=== PATIENT | male | born 1950 | race Caucasian/White ===

== ENCOUNTER 2022-12-09 10:12 | Emergency (ER) | payer OTHER ==
[2022-12-09] MEDS ORDERED: VANCOMYCIN 1,000 MG in DEXTROSE 5%-WATER - 250 ML IVPB ONE (10:40)
[2022-12-09] MEDS ORDERED: CEFEPIME HCL/D5W 1 GM/50 ML BAG IVPB ONE (10:41)
[2022-12-09] MEDS ORDERED: KETOROLAC TROMETHAMINE 30 MG/1 ML VIAL IVPUSH ONE (10:42)
[2022-12-09 10:52] LABS: BASO % 0.2 % (0-2.0); EOS % 0.8 % (0-4.5); HEMATOCRIT 41.4 % (35.4-49); HEMOGLOBIN 14.4 GM/dL (11.7-16.9); LYMPH % 15.9 % (8-40); MCH 31.6 pg (25.7-33.7); MCHC 34.9 g/dl (32.0-35.9); MEAN CELL VOLUME 90.6 fl (80-96); MEAN PLT VOLUME 7.2 fl (7.5-11.1); MONO % 12.3 % (3.8-10.2); NEUT % 70.8 % (42.8-82.8); PLATELET COUNT 264 10^3/uL (134-434); RBC 4.57 M/mm3 (4.00-5.60); RDW 13.9 % (11.9-15.9); WHITE BLOOD COUNT 11.3 K/mm3 (4.0-10.0)
[2022-12-09 10:58] LABS: INR 1.06 (0.83-1.09); PROTHROMBIN TIME (PATIENT) 12.3 SEC (9.7-13.0)
[2022-12-09 11:00] LABS: ACTIVATED PTT 27.3 SECONDS (25.2-36.5)
[2022-12-09] MEDS ORDERED: KETOROLAC TROMETHAMINE 30 MG/1 ML VIAL ONE (11:01)
[2022-12-09] MEDS ORDERED: VANCOMYCIN/WATER FOR INJ (PEG) 1,000 MG/200 ML BAG IVPB ONE (11:01)
[2022-12-09] MEDS ORDERED: CEFEPIME 1 GM/100 ML BAG IVPB ONE (11:02)
[2022-12-09 11:21] LABS: CALCIUM 9.7 mg/dL (8.5-10.1)
[2022-12-09 11:22] LABS: ALBUMIN 3.6 g/dl (3.4-5.0); BLOOD UREA NITROGEN 19.6 mg/dL (7-18)
[2022-12-09 11:24] LABS: URIC ACID 6.3 mg/dL (2.6-7.2)
[2022-12-09 11:26] LABS: BILIRUBIN,TOTAL 0.7 mg/dL (0.2-1); TOT PROT 7.8 g/dl (6.4-8.2)
[2022-12-09 12:30] VITALS: BP 138/81; PULSE 77; RESP 18; TEMP 98.5; BMI 28.5
== END 2022-12-09 16:35 | disposition home or self-care (01) ==
LOC: JER 10:12
PROC: 3E03329 Introduction of Other Anti-infective into Peripheral Vein, Percutaneous Approach (ICD-10-PCS; principal; 2022-12-09)
PROC: 3E03329 Introduction of Other Anti-infective into Peripheral Vein, Percutaneous Approach (ICD-10-PCS; 2022-12-09)
PROC: 3E0333Z Introduction of Anti-inflammatory into Peripheral Vein, Percutaneous Approach (ICD-10-PCS; 2022-12-09)
DX: M65.9 Synovitis and tenosynovitis, unspecified (principal); M79.644 Pain in right finger(s); R50.9 Fever, unspecified
CPT/HCPCS: 36415; 80053; 83605; 84550; 85025; 85610; 85651; 85730; 86140; 86850; 86900; 86901; 87040; 99284-25

== ENCOUNTER 2023-03-06 10:43 | Day surgery (SDC) | payer OTHER ==
[2023-02-28 11:29] VITALS: BMI 27.8
[2023-03-05] MEDS: oxyCODONE HCL 5 MG TABLET PO PRN (16:03)
[2023-03-05] MEDS: CEFAZOLIN SODIUM 2 GM in DEXTROSE 5%-WATER 100 ML IVPB SCH ×2 (16:04→23:05)
[2023-03-05] MEDS: TAMSULOSIN HCL 0.4 MG CAP PO SCH (18:01)
[2023-03-05] MEDS: KETOROLAC TROMETHAMINE 30 MG/1 ML VIAL IVPUSH SCH ×2 (18:03→23:05)
[2023-03-05] MEDS: ACETAMINOPHEN 500 MG TABLET (FP) PO SCH (20:00)
[2023-03-05] MEDS: SENNOSIDES/DOCUSATE COMBO (SENNA PLUS) TABLET (UD) PO SCH (21:22)
[2023-03-05] MEDS: FAMOTIDINE 20 MG TABLET PO SCH (21:22)
[2023-03-05] MEDS: ASPIRIN 81 MG CHEWABLE TABLETS PO SCH (21:22)
[2023-03-06] MEDS: oxyCODONE HCL 5 MG TABLET PO PRN ×5 (01:18→22:09)
[2023-03-06] MEDS: ACETAMINOPHEN 500 MG TABLET (FP) PO SCH ×4 (02:22→20:03)
[2023-03-06 07:16] LABS: HEMATOCRIT 35.5 % (35.4-49); MCH 32.3 pg (25.7-33.7); MCHC 33.8 g/dl (32.0-35.9); MEAN CELL VOLUME 95.4 fl (80-96); MEAN PLT VOLUME 7.8 fl (7.5-11.1); PLATELET COUNT 178.5 10^3/uL (134-434); RBC 3.72 10^6/uL (4.00-5.60); RDW 14.2 % (11.9-15.9); WHITE BLOOD COUNT 11.4 10^3/uL (4.0-10.8)
[2023-03-06 07:38] LABS: BLOOD UREA NITROGEN 13.6 mg/dl (7-18); CALCIUM 8.6 mg/dl (8.5-10.1); CREATININE 0.9 mg/dl (0.6-1.3); POTASSIUM 4.1 mmol/L (3.5-5.1)
[2023-03-06] MEDS: IBUPROFEN 400 MG TABLET (FP) PO SCH ×2 (08:48→16:02)
[~2023-03-06 10:43] MED LIST: ACETAMINOPHEN 1000 MG/100 ML BAG IVPB ONE; ACETAMINOPHEN INJECTION 100 ML IVPB ONE; BENZOCAINE/MENTH/CETYLPYRD CL 1 EACH LOZENGE MM PRN; BUPIVACAINE HCL/PF 0.5% (5 MG/ML) 30 ML VIAL IJ ONE; BUPIVACAINE HCL/PF 0.5% (5MG/ML) 10 ML VIAL ONE; BUPIVACAINE LIPOSOME/PF (EXPAREL) 266 MG/20 ML VIAL ONE; CEFAZOLIN SODIUM 2 GM in DEXTROSE 5%-WATER 100 ML IVPB ONE; DEXAMETHASONE SOD PHOSPHATE 4 MG/1 ML VIAL ONE; KETOROLAC TROMETHAMINE 30 MG/1 ML VIAL ONE; LACTATED RINGERS SOLUTION 1,000 ML IV SCH; LIDOCAINE HCL/EPINEPHRINE/PF 20 ML VIAL ONE; MAG HYDROX/AL HYDROX/SIMETH 30 ML UNIT-DOSE CUP PO PRN; MAGNESIUM HYDROX 2400MG/30ML ORAL SUSPENSION 30 ML CUP PO PRN; MIDAZOLAM HCL 2 MG/2 ML SINGLE DOSE VIAL ONE; ONDANSETRON 4 MG/2 ML VIAL IVPUSH PRN; ONDANSETRON 4 MG/2 ML VIAL ONE; PROPOFOL 20 ML ONE; PROPOFOL 40 ML ONE; SIMETHICONE 80 MG TAB.CHEW (FP) PO PRN; SODIUM CHLORIDE 1,000 ML IV SCH; TRANEXAMIC ACID 1000 MG/10 ML VIAL ONE; ceFAZolin SODIUM 1 GM VIAL ONE; morphine SULFATE 4 MG/ML VIAL IVPUSH PRN; oxyCODONE HCL 10 MG SUSTAINED ACTING TABLET PO SCH
[2023-03-06] MEDS: ASPIRIN 81 MG CHEWABLE TABLETS PO SCH ×2 (10:47→21:06)
[2023-03-06] MEDS: ATORVASTATIN CA 20 MG TABLET (FP) PO SCH (10:47)
[2023-03-06] MEDS: DEXAMETHASONE 4 MG TABLET (FP) PO SCH ×2 (10:47→21:06)
[2023-03-06] MEDS: CEPHALEXIN MONOHYDRATE 250 MG CAPSULE (FP) PO SCH ×3 (10:47→21:06)
[2023-03-06] MEDS: SENNOSIDES/DOCUSATE COMBO (SENNA PLUS) TABLET (UD) PO SCH ×2 (10:47→22:06)
[2023-03-06] MEDS: MULTIVITAMINS (DAILY MVI) TABLET (FP) PO SCH (10:47)
[2023-03-06] MEDS: POLYETHYLENE GLYCOL (HEALTHYLAX) 3350 17 GM PACKET PO SCH (10:47)
[2023-03-06] MEDS: FAMOTIDINE 20 MG TABLET PO SCH ×2 (10:48→21:06)
[2023-03-06] MEDS ORDERED: BISACODYL 10 MG SUPP.RECT PR ONE (14:00)
[2023-03-06] MEDS: TAMSULOSIN HCL 0.4 MG CAP PO SCH (17:44)
[2023-03-07] MEDS: IBUPROFEN 400 MG TABLET (FP) PO SCH ×3 (00:30→16:57)
[2023-03-07] MEDS: CEPHALEXIN MONOHYDRATE 250 MG CAPSULE (FP) PO SCH ×4 (04:56→21:00)
[2023-03-07] MEDS: ACETAMINOPHEN 500 MG TABLET (FP) PO SCH ×4 (04:56→22:34)
[2023-03-07] MEDS: oxyCODONE HCL 5 MG TABLET PO PRN ×2 (08:14→18:47)
[2023-03-07] MEDS: ASPIRIN 81 MG CHEWABLE TABLETS PO SCH ×2 (09:20→21:00)
[2023-03-07] MEDS: ATORVASTATIN CA 20 MG TABLET (FP) PO SCH (09:20)
[2023-03-07] MEDS: SENNOSIDES/DOCUSATE COMBO (SENNA PLUS) TABLET (UD) PO SCH ×2 (09:20→21:01)
[2023-03-07] MEDS: MULTIVITAMINS (DAILY MVI) TABLET (FP) PO SCH (09:21)
[2023-03-07] MEDS: FAMOTIDINE 20 MG TABLET PO SCH ×2 (09:21→21:00)
[2023-03-07] MEDS: DEXAMETHASONE 4 MG TABLET (FP) PO SCH ×2 (09:21→21:01)
[2023-03-07] MEDS: POLYETHYLENE GLYCOL (HEALTHYLAX) 3350 17 GM PACKET PO SCH (09:31)
[2023-03-07] MEDS: TAMSULOSIN HCL 0.4 MG CAP PO SCH (17:00)
[2023-03-08] MEDS: IBUPROFEN 400 MG TABLET (FP) PO SCH ×3 (00:18→16:39)
[2023-03-08] MEDS: CEPHALEXIN MONOHYDRATE 250 MG CAPSULE (FP) PO SCH ×4 (03:56→21:26)
[2023-03-08] MEDS: ACETAMINOPHEN 500 MG TABLET (FP) PO SCH ×3 (07:21→22:26)
[2023-03-08] MEDS: oxyCODONE HCL 5 MG TABLET PO PRN (08:26)
[2023-03-08] MEDS: ATORVASTATIN CA 20 MG TABLET (FP) PO SCH (09:49)
[2023-03-08] MEDS: MULTIVITAMINS (DAILY MVI) TABLET (FP) PO SCH (09:49)
[2023-03-08] MEDS: ASPIRIN 81 MG CHEWABLE TABLETS PO SCH ×2 (09:49→21:26)
[2023-03-08] MEDS: DEXAMETHASONE 4 MG TABLET (FP) PO SCH ×2 (09:49→21:26)
[2023-03-08] MEDS: FAMOTIDINE 20 MG TABLET PO SCH ×2 (09:50→21:26)
[2023-03-08] MEDS: POLYETHYLENE GLYCOL (HEALTHYLAX) 3350 17 GM PACKET PO SCH (11:03)
[2023-03-08] MEDS: SENNOSIDES/DOCUSATE COMBO (SENNA PLUS) TABLET (UD) PO SCH ×2 (11:03→21:52)
[2023-03-08] MEDS ORDERED: REFRIGERATED ANITBIOTICS ONE (13:47)
[2023-03-08] MEDS: TAMSULOSIN HCL 0.4 MG CAP PO SCH (17:13)
[2023-03-09] MEDS: CEPHALEXIN MONOHYDRATE 250 MG CAPSULE (FP) PO SCH ×2 (05:07→09:52)
[2023-03-09] MEDS: ACETAMINOPHEN 500 MG TABLET (FP) PO SCH (06:07)
[2023-03-09] MEDS: IBUPROFEN 400 MG TABLET (FP) PO SCH ×2 (06:07→09:53)
[2023-03-09] MEDS: FAMOTIDINE 20 MG TABLET PO SCH (09:52)
[2023-03-09] MEDS: POLYETHYLENE GLYCOL (HEALTHYLAX) 3350 17 GM PACKET PO SCH (09:52)
[2023-03-09] MEDS: ASPIRIN 81 MG CHEWABLE TABLETS PO SCH (09:52)
[2023-03-09] MEDS: SENNOSIDES/DOCUSATE COMBO (SENNA PLUS) TABLET (UD) PO SCH (09:52)
[2023-03-09] MEDS: ATORVASTATIN CA 20 MG TABLET (FP) PO SCH (09:52)
[2023-03-09] MEDS: MULTIVITAMINS (DAILY MVI) TABLET (FP) PO SCH (09:53)
[2023-03-09 10:06] VITALS: BP 141/73; PULSE 62; RESP 18; TEMP 97.4
== END 2023-03-09 11:00 | disposition home or self-care (01) ==
LOC: FASUSAT 10:43 → FM/S 10:43 → FASUSAT 03-09 11:00
PROVIDERS: ATTEND Orthopaedic Surgery
PROC: 0SRD0J9 Replacement of Left Knee Joint with Synthetic Substitute, Cemented, Open Approach (ICD-10-PCS; principal; 2023-03-06)
PROC: 0SRC0J9 Replacement of Right Knee Joint with Synthetic Substitute, Cemented, Open Approach (ICD-10-PCS; 2023-03-06)
DX: M17.0 Bilateral primary osteoarthritis of knee (principal)
CPT/HCPCS: 27447; C1776; 36415; 73560-TC-LT-FY; 73560-TC-RT-FY; 80048; 85027; 86850; 86900; 86901; 87635; 94760; 97010-GP; 97116-GP; 97162-GP; C1889